=== PATIENT | female | born 1980 | race African-American/Black ===

== ENCOUNTER 2018-12-09 14:10 | Emergency (ER) | payer MEDICAID ==
[~2018-12-09] VITALS: Ht 162.6 cm; Wt 64.9 kg
--- NOTE | 2018-12-09 14:30 | NUR ---
ED Nurse Note: Patient walked into ED from home c/o vaginal bleeding bright red blood. patient reports spotting since 12/04/18 but for the past 2 days, patient has been having increase in bleeding, bright red, soked 1 pad today. patient reports her was confirmed by blood test at her OBGYN office on 11/25/18. This her first . patient reports her last mestrual period started on 09/22/18 but she is usually irregular. patient is alert awake x4 ambulatory steady gait, breathing unlabored and even. patient assisted into hospital gown.
--- NOTE | 2018-12-09 14:31 | Emergency Room Report ---
History of Present Illness General Chief Complaint: Female Urogenital Problems Source: Patient Present Illness HPI Disclaimer: Please note that this report is being documented using DRAGON technology. This can lead to erroneous entry secondary to incorrect interpretation by the dictating instrument. HPI: This a 38-year-old female with no reported past medical history presenting to the emergency department for evaluation of vaginal spotting and lower pelvic cramping. Patient recently found out she was with a confirmatory blood test being done on 11/25. Last menstrual period was August and does not know how far along she is. Her quantitative hCG was around 2000 on 11/25. Ultrasound is not yet been performed which she did have her first [facility] appointment yesterday. She notes abdominal cramping and spotting for the last 5 days. Denies any passage of clots or anything that looks like material. Denies back pain, fevers, vomiting, nausea, dysuria, hematuria vaginal discharge, diarrhea. PMH: Denies PSH: Breast augmentation Allergies: Denies Social Hx: Prior social alcohol use, none current. Denies drugs or tobacco Allergies: Coded Allergies: No Known Allergies (Unverified , 12/09/18) Patient History Last Menstrual Period: 09/22/18 Now: Yes : 1 Para: 0 Nursing Documentation-PMH Past Medical History: No Stated History Review of Systems All Other Systems: negative except mentioned in HPI Physical Exam Vital Signs Date Time Temp Pulse Resp B/P (MAP) Pulse Ox O2 Delivery O2 Flow Rate FiO2 12/09/18 14:22 99.0 95 18 122/86 (98) 98 Room Air General: Awake and alert, no acute distress HEENT: NC/AT. EOMI. Cardiovascular: RRR. S1 and S2 normal. No murmur appreciated Resp: Normal work of breathing. No cough, wheezing or crackles appreciated Abdomen: Abdomen is soft, nondistended. Mild suprapubic tenderness. No rebound. No masses Skin: Intact. No abrasions, laceration or rash over the exposed skin MSK: Normal tone and bulk. Moving all extremities. No obvious deformity. Neuro: Awake and alert. Mentating appropriately. Medical Decision Making Diagnostic Impression: Primary Impression: Miscarriage, threatened, early ER Course 38-year-old G1, P0 female at unknown time of gestation presents for evaluation of lower abdominal cramping and vaginal bleeding. Differential includes but not limited to missed , threatened , incomplete , complete , dysfunctional bleeding, placenta previa. Will obtain labs, hCG quant, type and screen and a pelvic ultrasound. She is in no acute distress and hemodynamically stable Laboratory Tests Test 12/09/18 14:40 White Blood Count 10.8 K/UL (4.8-10.8) Red Blood Count 3.98 M/UL (4.20-5.40) L Hemoglobin 12.4 G/DL (12.0-16.0) Hematocrit 37.8 % (37.0-47.0) Mean Corpuscular Volume 95 FL (80-99) Mean Corpuscular Hemoglobin 31.1 PG (27.0-31.0) H Mean Corpuscular Hemoglobin Concent 32.7 G/DL (32.0-36.0) Red Cell Distribution Width 12.8 % (11.6-14.8) Platelet Count 425 K/UL (150-450) Mean Platelet Volume 5.4 FL (6.5-10.1) L Neutrophils (%) (Auto) 62.8 % (45.0-75.0) Lymphocytes (%) (Auto) 30.0 % (20.0-45.0) Monocytes (%) (Auto) 5.7 % (1.0-10.0) Eosinophils (%) (Auto) 0.8 % (0.0-3.0) Basophils (%) (Auto) 0.7 % (0.0-2.0) Urine Color Yellow Urine Appearance Clear Urine pH 5 (4.5-8.0) Urine Specific [place] 1.020 (1.005-1.035) Urine Protein 2+ (NEGATIVE) H Urine Glucose (UA) Negative (NEGATIVE) Urine Ketones 3+ (NEGATIVE) H Urine Blood 5+ (NEGATIVE) H Urine Nitrite Negative (NEGATIVE) Urine Bilirubin Negative (NEGATIVE) Urine Urobilinogen Normal MG/DL (0.0-1.0) Urine Leukocyte Esterase 2+ (NEGATIVE) H Urine RBC 2-4 /HPF (0 - 2) H Urine WBC 2-4 /HPF (0 - 2) Urine Squamous Epithelial Cells Occasional /LPF Urine Calcium Oxalate Crystals Few /LPF (NONE) Urine Bacteria Occasional /HPF (NONE) Sodium Level 141 MMOL/L (136-145) Potassium Level 3.6 MMOL/L (3.5-5.1) Chloride Level 107 MMOL/L (98-107) Carbon Dioxide Level 24 MMOL/L (21-32) Anion Gap 10 mmol/L (5-15) Blood Urea Nitrogen 8 mg/dL (7-18) Creatinine 0.8 MG/DL (0.55-1.30) Estimate Glomerular Filtration Rate > 60 mL/min (>60) Glucose Level 92 MG/DL (74-106) Calcium Level 9.0 MG/DL (8.5-10.1) Total Bilirubin 0.7 MG/DL (0.2-1.0) Aspartate Amino Transferase (AST) 20 U/L (15-37) Alanine Aminotransferase (ALT) 17 U/L (12-78) Alkaline Phosphatase 57 U/L (46-116) Total Protein 7.2 G/DL (6.4-8.2) Albumin 3.8 G/DL (3.4-5.0) Globulin 3.4 g/dL Albumin/Globulin Ratio 1.1 (1.0-2.7) Human Chorionic Gonadotropin, Quant 4106 mIU/mL (1-6) H Reevaluation Time: 17:15 Last Vital Signs Date Time Temp Pulse Resp B/P (MAP) Pulse Ox O2 Delivery O2 Flow Rate FiO2 12/09/18 14:22 99.0 95 18 122/86 (98) 98 Room Air Status: unchanged Reevaluation Impression Lab work shows an hCG of 4108 which is significantly lower compared to expected if patient's hCG on 11/25 was around 2000. Ultrasound shows a gestational sac but no pole concerning for threatened miscarriage though this may be very early . Blood type is O+ she does not require RhoGam. Other labs are stable and unremarkable. She will be discharged home to follow-up with your OB/ ACUTE CARE PHYSICIAN tomorrow. She states she had lab work drawn yesterday including quantitative hCG. This will be compared by her [facility]. Copy of her labs were provided. Discussed reasons to return to the emergency department. She is stable for outpatient follow-up with [facility]. She understands and agrees with this treatment plan will be discharged home Disposition: HOME, SELF-CARE Condition: Stable Basim Ling MD Dec 09, 2018 14:31
[2018-12-09 14:57] LABS: APPEARANCE,URINE CLEAR; BILIRUBIN, URINE NEGATIVE (NEGATIVE); GLUCOSE, URINE (UA) NEGATIVE (NEGATIVE); KETONES,URINE 3+ (NEGATIVE); LEUKOCYTE ESTERASE ,URINE 2+ (NEGATIVE); NITRITE,URINE NEGATIVE (NEGATIVE); PH,URINE 5 (4.5-8.0); PROTEIN,URINE 2+ (NEGATIVE); UROBILINOGEN,URINE NORMAL MG/DL (0.0-1.0)
[2018-12-09 15:03] LABS: BASOPHILS % (AUTO) 0.7 % (0.0-2.0); EOSINOPHILS % (AUTO) 0.8 % (0.0-3.0); HEMATOCRIT 37.8 % (37.0-47.0); HEMOGLOBIN 12.4 G/DL (12.0-16.0); MEAN CORPUSCULAR VOLUME 95 FL (80-99); MONOCYTES % (AUTO) 5.7 % (1.0-10.0); NEUTROPHILS % (AUTO) 62.8 % (45.0-75.0); PLATELET COUNT 425 K/UL (150-450); RED BLOOD COUNT 3.98 M/UL (4.20-5.40); RED CELL DISTRIBUTION WIDTH 12.8 % (11.6-14.8); WHITE BLOOD COUNT 10.8 K/UL (4.8-10.8)
[2018-12-09 15:04] LABS: COLOR,URINE YELLOW
[2018-12-09 15:13] LABS: ANION GAP 10 mmol/L (5-15); BLOOD UREA NITROGEN 8 mg/dL (7-18); CARBON DIOXIDE 24 MMOL/L (21-32); CHLORIDE 107 MMOL/L (98-107); CREATININE 0.8 MG/DL (0.55-1.30); POTASSIUM 3.6 MMOL/L (3.5-5.1); SODIUM 141 MMOL/L (136-145)
[2018-12-09 15:19] LABS: ALANINE AMINOTRANSFERASE 17 U/L (12-78); ALBUMIN 3.8 G/DL (3.4-5.0); ALBUMIN/GLOBULIN RATIO 1.1 (1.0-2.7); ALKALINE PHOSPHATASE 57 U/L (46-116); ASPARTATE AMINO TRANSFERASE 20 U/L (15-37); BILIRUBIN,TOTAL 0.7 MG/DL (0.2-1.0)
[2018-12-09 15:29] VITALS: BP 108/82
--- NOTE | 2018-12-09 15:40 | NUR ---
ED Nurse Note: patient went to US
--- NOTE | 2018-12-09 17:05 | Diagnostic Imaging Report ---
Indication: Vaginal spotting, patient Technique: Transabdominal and transvaginal images of the pelvis Doppler interrogation of the bilateral ovaries Comparison: none Findings: Uterus measures 7.7 cm length by 3.8 cm AP. Within the endometrium, there is a small fluid collection with a surrounding decidual reaction. No yolk sac or pole demonstrated. No heart activity. Sac size is too small to estimate dates. Within the myometrium, there is a 1.7 cm diameter hypoechoic focus, most likely a fibroid. A small fluid area measuring 9 mm diameter is seen within the endocervical canal. The left ovary measures 3.5 cm in length. Right ovary measures 2.8 cm in length. No adnexal mass demonstrated. Normal flow in the ovaries as seen on Doppler imaging.. Impression: Small intrauterine gestational sac noted. No yolk sac or parts demonstrated. Differential considerations include very early , nonviable . Correlation with serial beta hCGs recommended Fluid within the endocervical canal, most likely represents old blood given stated clinical history of vaginal spotting Small uterine fundal fibroid noted Normal ovaries.
[2018-12-09 17:20] VITALS: BP 110/81
[2018-12-09 17:30] VITALS: BP 108/82
--- NOTE | 2018-12-09 17:30 | NUR ---
ER DISCHARGE NOTE: Patient is cleared to be discharged per ERMD DR HUFFMAN, pt is aox4, on room air, with stable vital signs. pt was given dc instructions, pt was able to verbalize understanding, pt id band and iv site removed without complications. pt is able to ambulate with steady gait. pt took all belongings.
== END 2018-12-09 17:30 | disposition home or self-care (01) ==
LOC: EMR 14:40
DX: O20.0 Threatened abortion (principal); Z3A.00 Weeks of gestation of pregnancy not specified; D25.9 Leiomyoma of uterus, unspecified
CPT/HCPCS: 36415; 76801; 76830; 80053; 81003; 84702; 85025; 86850; 86900; 86901; 96360; Z7502; 99284